=== PATIENT | male | born 1975 | race Caucasian/White ===

== ENCOUNTER 2016-09-10 12:09 | Emergency (ER) | payer OTHER ==
[2016-09-10 12:28] VITALS: BP 139/97
[2016-09-10] MEDS ORDERED: HYDROmorphone 1 MG/ML Syringe IM ONE (13:03)
[2016-09-10] MEDS ORDERED: Cyclobenzaprine 10 MG Tab PO ONE (13:03)
--- NOTE | 2016-09-10 13:08 | EDM.PDOC ---
ED HPI LOWER BACK PAIN/INJURY - General Chief Complaint: Back Pain or Injury Stated Complaint: SEVERE BACK PAIN Time Seen by Provider: 09/10/16 13:04 Source: Reports: Patient History Limitations: Reports: No limitations - History of Present Illness INITIAL COMMENTS - FREE TEXT/NARRATIVE: pt has very severe pain in the left lower back, going over the buttock and down the left leg. He states this started acutely about 36 hours ago, he has had 2 back surgeries. He is not chronicly on pain meds. he did not have a injury or a fall. Timing/Duration: Reports: Day(s):, Getting worse Location: Reports: radiating pain, other ( going down the left leg. ) Context: Reports: other ( No known injury. ) Associated Symptoms: Denies: Other ( svereback pain. ) - Related Data Allergies/ADRs: Allergies Allergy/AdvReac Type Severity Reaction Status Date / Time No Known Allergies Allergy Verified 09/10/16 12:49 Home Meds: Home Meds NK [No Known Home Meds] 05/19/14 [History] Past Medical History Musculoskeletal History: Reports: Back pain, chronic Neurological History: Reports: Other (see below) Other Neuro History: encephalitis/meningitis at 22yrs old. - Past Surgical History Neurological Surgical History: Reports: Discectomy, Other (see below) Other Neurological Surgeries/Procedures: spine surgery x 2. Social & Family History - Tobacco Use Smoking Status *Q: Never Smoker - Recreational Drug Use Recreational Drug Use: No ED ROS GENERAL - Review of Systems Review Of Systems: See Below Constitutional: Reports: no symptoms HEENT: Reports: No symptoms Respiratory: Reports: No Symptoms Cardiovascular: Reports: No symptoms Endocrine: Reports: no symptoms GI/Abdominal: Reports: No symptoms : Reports: no symptoms Musculoskeletal: Reports: other ( severe pain in his left lower back radiating down the left leg. ) Skin: Reports: no symptoms Neurological: Reports: Other ( numbness and tingling in his left foot. ) Psychiatric: Reports: Anxiety ED EXAM,LOWER BACK PAIN/INJURY - Physical Exam Exam: See Below Text/Narrative:: pt has severe left sided pain going down the left leg. Exam Limited By: No limitations General Appearance: alert, severe distress, other ( Pt had very severe pain on arrival. ) Ears: normal TMs Nose: normal inspection Throat/Mouth: Normal inspection Head: atraumatic Neck: normal inspection Respiratory/Chest: no respiratory distress Cardiovascular: regular rate, rhythm GI/Abdominal: soft, non tender Rectal (Males) Exam: Deferred Extremities: other (Pt is very tender over the buttock area. He has a very positive straight leg raising sign. He can only raise the leg about 3-4 inches off of the cart. At tht point he has very severe pain. He has weakness in the left leg. He is having tingling in the leg and foot. he has normal great toe strength. He has normal patellar reflexes. ) Neurological: alert, oriented x 3 Psychiatric: normal affect, anxious Course - Vital Signs Last Recorded V/S: Last Vital Signs Temp 36.3 C 09/10/16 12:49 Pulse 75 09/10/16 12:49 Resp 15 09/10/16 12:49 BP 139/97 H 09/10/16 12:49 Pulse Ox 98 09/10/16 12:49 - Orders/Labs/Meds Meds: Medications Discontinued Medications Generic Name Dose Route Start Last Admin Trade Name Shabana PRN Reason Stop Dose Admin Cyclobenzaprine HCl 10 mg 09/10/16 13:03 09/10/16 13:09 Flexeril PO 09/10/16 13:04 10 mg ONETIME ONE Administration Gadoteridol 20 ml 09/10/16 14:00 09/10/16 14:21 Prohance IV 09/10/16 14:01 20 ml . DIRECTED ADRIAN Administration Hydromorphone HCl 1 mg 09/10/16 13:03 09/10/16 13:10 Dilaudid IM 09/10/16 13:04 1 mg ONETIME ONE Administration Ketorolac Tromethamine 30 mg 09/10/16 13:35 09/10/16 14:26 Toradol IVPUSH 09/10/16 13:36 30 mg ONETIME ONE Administration - Re-Assessments/Exams Free Text/Narrative Re-Assessment/Exam: 09/10/16 15:03 Pt has been given 1.5 mg of dilaudid. He was given torodol 30mg iv. He had flexeril 10 mg . He is much more comfortable. Departure - Departure Time of Disposition: 15:04 Disposition: Home, Self-Care 01 Condition: fair Clinical Impression: Lumbar disc disease Forms: ED Department Discharge Care Plan Goals: rest, ice or heat to the area. Appt with Dr Giovanni Cornelius in next 3-4 days. . motrin 600mg tid, percocet 5/325 q6h prn for pain, flexeril 10mg bid to relax muscles.
[2016-09-10] MEDS ORDERED: Ketorolac 30 MG/ML SDV IVPUSH ONE (13:35)
[2016-09-10] MEDS ORDERED: Gadoteridol 279.3 MG/ML 20 ML SDV IV SCH (14:00)
--- NOTE | 2016-09-10 14:45 | MR ---
MRI lumbar spine with contrast. Indication: Left-sided back pain. Comparison: 11/25/2012. Findings: Similar labeling will be done compared to prior. 6 lumbar type vertebral bodies. Correlate with plain film before any intervention. No marrow edema. Disc heights appear similar. Conus terminates normal anatomic position. L1-2: Within normal limits. L2-3: Within normal limits. L3-4: Central disc protrusion is minimal with a central radial tear. No canal stenosis or foraminal narrowing. L4-5: Remains a central disc protrusion eccentric to the left. This creates moderate left lateral re cess narrowing as similar. No foraminal narrowing. L5-6: Right paracentral disc protrusion again appears prominent with similar appearing right lateral recess narrowing. Mild spinal canal stenosis. No foraminal narrowing. The remains similar mild left lateral recess narrowing. L6-S1: No left-sided foraminal narrowing. Similar. Disc osteophyte complex and facet hypertrophic ch rebeca contributing to mild-moderate right-sided foraminal narrowing. This is similar. Impression: 1. Foraminal at L4-5 there is a broad-based disc protrusion with left lateral recess narrowing. This is similar compared to prior. 2. No left-sided foraminal narrowing. 3. Right paracentral disc protrusion at L5-6 demonstrates advanced right lateral recess narrowing.
[2016-09-10] MEDS ORDERED: HYDROmorphone 0.5 MG/0.5 ML Syringe IVPUSH ONE (15:06)
== END 2016-09-10 15:39 | disposition home or self-care (01) ==
LOC: JP.ED 12:09
DX: M51.26 Other intervertebral disc displacement, lumbar region (principal); G89.29 Other chronic pain
CPT/HCPCS: 72158; 96372; 96374; 96375; 99284; A9270; A9576; J1170; J1885

== ENCOUNTER 2018-06-08 08:06 | Inpatient (IN) | payer OTHER ==
[~2018-06-08 08:06] MED LIST: Meropenem 500 MG SDV ONE
[2018-06-08] MEDS ORDERED: Acetaminophen 500 MG Tab PO ONE (08:15)
[2018-06-08] MEDS ORDERED: Scopolamine 1.5 MG Transdermal Patch TOP SCH (08:30)
[2018-06-08] MEDS ORDERED: Dextrose 5%-Lactated Ringers 1,000 ML IV SCH (08:30)
[2018-06-08] MEDS ORDERED: Ketamine 50 MG in Sodium Chloride 0.9% 49.5 ML IV SCH (09:00)
[2018-06-08] MEDS ORDERED: Ketamine 500 MG/5 ML MDV IV SCH (09:00)
[2018-06-08] MEDS ORDERED: Naloxone 0.4 MG/ML SDV IVPUSH PRN (09:00)
[2018-06-08] MEDS ORDERED: Neostigmine Methylsulfate 1 MG/ML 5 ML Syringe ONE (09:18)
[2018-06-08] MEDS ORDERED: Rocuronium 50 MG/5 ML Vial ONE ×2 (09:18→12:20)
[2018-06-08] MEDS ORDERED: Propofol 200 MG/20 ML SDV ONE (09:18)
[2018-06-08] MEDS ORDERED: Ondansetron 4 MG/2 ML SDV ONE (09:18)
[2018-06-08] MEDS ORDERED: Glycopyrrolate 0.2 MG/ML 5 ML MDV ONE (09:18)
[2018-06-08] MEDS ORDERED: fentaNYL 250 MCG/5 ML SDV ONE (09:18)
[2018-06-08] MEDS ORDERED: fentaNYL 100 MCG/2 ML SDV ONE (09:18)
[2018-06-08] MEDS ORDERED: Dexamethasone 4 MG/ML SDV ONE (09:18)
[2018-06-08] MEDS ORDERED: Sodium Chloride 0.9% 10 ML ONE (09:20)
[2018-06-08] MEDS ORDERED: cefOXitin 2 GM in Sodium Chloride 0.9% 50 ML IV ONE (09:30)
[2018-06-08] MEDS ORDERED: Acetaminophen 1,000 MG in Premix Bag 1 BAG IV ONE (14:30)
[2018-06-08] MEDS ORDERED: hydrOXYzine HCl 25 MG Tab PO PRN (14:59)
[2018-06-08] MEDS ORDERED: Naloxone 0.4 MG/ML SDV IV PRN (15:02)
[2018-06-08] MEDS ORDERED: diphenhydrAMINE 50 MG/ML SDV IVPUSH PRN (15:02)
[2018-06-08] MEDS: hydrOXYzine HCl 100 MG/2 ML SDV IM PRN (15:02)
[2018-06-08] MEDS ORDERED: Ondansetron 4 MG/2 ML SDV IVPUSH PRN (15:05)
[2018-06-08] MEDS: Cyclobenzaprine 10 MG Tab PO PRN (15:51)
[2018-06-08] MEDS: Dextrose 5%-Lactated Ringers 1,000 ML IV SCH ×2 (16:13→22:23)
[2018-06-08] MEDS: fentaNYL 2,500 MCG in Sodium Chloride 0.9% 200 ML EPIDUR SCH (16:30)
[2018-06-08] MEDS: cefOXitin 2 GM in Sodium Chloride 0.9% 50 ML IV SCH ×2 (16:37→23:33)
[2018-06-08] MEDS: Pantoprazole 40 MG Vial IV SCH (16:40)
[2018-06-08] MEDS: VERIFY SCOP PATCH TOP SCH (16:44)
[2018-06-08] MEDS: Acetaminophen 500 MG Tab PO SCH (21:15)
[2018-06-08] MEDS: Tamsulosin 0.4 MG Cap.ER PO SCH (21:15)
[2018-06-09] MEDS: Acetaminophen 500 MG Tab PO SCH ×4 (04:37→22:14)
[2018-06-09] MEDS: Dextrose 5%-Lactated Ringers 1,000 ML IV SCH ×3 (04:37→22:16)
[2018-06-09] MEDS: cefOXitin 2 GM in Sodium Chloride 0.9% 50 ML IV SCH (04:37)
[2018-06-09] MEDS: fentaNYL 2,500 MCG in Sodium Chloride 0.9% 200 ML EPIDUR SCH (07:08)
[2018-06-09] MEDS: Bisacodyl 5 MG Tab PO SCH ×2 (10:08→22:13)
[2018-06-09] MEDS: Ibuprofen 600 MG Tab PO SCH ×3 (10:09→20:07)
[2018-06-09] MEDS: VERIFY SCOP PATCH TOP SCH (10:10)
[2018-06-09] MEDS: traMADol 50 MG Tab PO SCH ×3 (10:54→22:20)
[2018-06-09] MEDS: Pantoprazole 40 MG Vial IV SCH (16:20)
[2018-06-09] MEDS: Tamsulosin 0.4 MG Cap.ER PO SCH (22:13)
[2018-06-10] MEDS: Ibuprofen 600 MG Tab PO SCH ×4 (02:07→20:02)
[2018-06-10] MEDS: fentaNYL 2,500 MCG in Sodium Chloride 0.9% 200 ML EPIDUR SCH (03:23)
[2018-06-10] MEDS: Acetaminophen 500 MG Tab PO SCH ×4 (03:25→21:56)
[2018-06-10] MEDS: traMADol 50 MG Tab PO SCH ×4 (05:34→21:56)
[2018-06-10] MEDS ORDERED: Meropenem 500 MG SDV ONE (06:34)
[2018-06-10] MEDS ORDERED: Bupivacaine 0.5% 50 ML MDV ONE (06:34)
[2018-06-10] MEDS ORDERED: Lidocaine 1% with EPINEPHrine 1:100,000 50 ML MDV ONE (06:35)
[2018-06-10] MEDS ORDERED: fentaNYL 100 MCG/2 ML SDV ONE (07:03)
[2018-06-10] MEDS ORDERED: Propofol 200 MG/20 ML SDV ONE (07:03)
[2018-06-10] MEDS ORDERED: Ropivacaine 49 ML, Dexamethasone 8 MG, EPINEPHrine 0.4 MG, Sodium Chloride 0.9% 28.6 ML NERVRT SCH ×4 (07:15)
[2018-06-10] MEDS ORDERED: hydrOXYzine HCl 100 MG/2 ML SDV IM ONE (08:01)
[2018-06-10] MEDS: Dextrose 5%-Lactated Ringers 1,000 ML IV SCH ×2 (08:32→17:38)
[2018-06-10] MEDS: Bisacodyl 5 MG Tab PO SCH ×2 (09:34→20:03)
[2018-06-10] MEDS: VERIFY SCOP PATCH TOP SCH (09:40)
--- NOTE | 2018-06-10 10:01 | PN ---
DATE OF SERVICE: 06/10/2018 SUBJECTIVE: Terrance is n.p.o. for delayed primary closure today. Pain, he rates 4 to 5. Oral intake 2670. Garcia output was 3130. Vital signs have been stable. REVIEW OF SYSTEMS: Remainder of review of systems negative for any pertinent positives and negatives. OBJECTIVE: GENERAL: Terarnce Hubbard is a 42-year-old male. VITAL SIGNS: TPR 98.8, 81, 16, blood pressure 151/71. HEENT: Negative. NECK: Supple. HEART: Regular rate and rhythm. LUNGS: Clear. ABDOMEN: Dressings dry and intact. Abdominal binder is on. EXTREMITIES: Without peripheral edema. ASSESSMENT: Exploratory laparotomy with rectosigmoid colon resection with coloproctostomy, repair of incarcerated umbilical hernia, and mobilization of omentum into pelvis for rectosigmoid colon diverticulitis, incarcerated umbilical hernia. PLAN: 1. Orders to be written after delayed primary closure, which will be saline lock IV. If oral intake adequate, Garcia will be discontinued at the time of delayed primary closure. 2. Good pulmonary toilet. 3. Plan discharge in bryanheather Melendez PA-C /[id number]
--- NOTE | 2018-06-10 12:19 | PN ---
DATE OF SERVICE: 06/10/2018 The patient has been afebrile with stable vital signs. No flatus or bowel movement as of yet, but he is tolerating diet. He will undergo the delayed primary closure later today, and Garcia catheter, epidural catheter, and JEREMIAH drain were all removed. We will continue bowel stimulation, resume regular diet, and we will continue pain medications with a combination of tramadol, Tylenol, and ibuprofen. Andrew Cornelius MD /[id number]
--- NOTE | 2018-06-10 12:25 | OR ---
DATE OF PROCEDURE: 06/10/2018 PREOPERATIVE DIAGNOSIS: Open abdominal incision. POSTOPERATIVE DIAGNOSIS: Open abdominal incision. PROCEDURE: Delayed primary closure of open abdominal incision. ANESTHESIA: IV sedation. INDICATIONS FOR PROCEDURE: This is a 42-year-old male, 48 hours status post sigmoid colon resection for recurrent diverticulitis. At the time of the original procedure, he was felt to be high risk for wound infection if primary closure was undertaken. Given this, a delayed primary closure was scheduled for today. Potential risks of the procedure including bleeding and infection were reviewed, and the patient wishes to proceed. DETAILS OF PROCEDURE: The patient was taken to the operating room and placed in a supine position, sitting up somewhat to minimize aspiration risk. The previous abdominal dressing was taken down and the wound inspected and found to be clean. The abdomen was then prepped and draped. Using ultrasound guidance, bilateral lower abdominal and transversus abdominis plane blocks were placed and the abdomen irrigated with meropenem-containing saline solution, and the edges were anesthetized with 1% lidocaine mixed with Marcaine. The incision was then closed with 2 layers of 3-0 and 4-0 Vicryl stitch deep, and then antwan for the skin. Dressing was applied. The patient was taken to the recovery room in satisfactory condition. Andrew Cornelius MD /[id number]
--- NOTE | 2018-06-10 13:10 | PN ---
DATE OF SERVICE: 06/09/2018 The patient has been afebrile with stable vital signs. No major problems were noted. Pain control appears to be doing well with the epidural catheter. We will begin ibuprofen and tramadol today in addition to Tylenol, and as well as bowel stimulation needed, and plan will be to proceed with a delayed primary closure of the abdominal incision and removal of the epidural catheter tomorrow morning. Andrew Cronelius MD /[id number]
[2018-06-10] MEDS: Cyclobenzaprine 10 MG Tab PO PRN (16:18)
[2018-06-10] MEDS: hydrOXYzine HCl 100 MG/2 ML SDV IM PRN (16:18)
[2018-06-10] MEDS ORDERED: Pantoprazole 40 MG Tab.CR PO SCH (16:30)
[2018-06-10] MEDS: Tamsulosin 0.4 MG Cap.ER PO SCH (20:03)
[2018-06-11] MEDS: Acetaminophen 500 MG Tab PO SCH ×2 (03:59→09:50)
[2018-06-11] MEDS: Ibuprofen 600 MG Tab PO SCH ×2 (04:06→10:23)
[2018-06-11] MEDS: traMADol 50 MG Tab PO SCH ×2 (05:30→10:23)
--- NOTE | 2018-06-11 08:25 | DISCH ---
ADMISSION DIAGNOSES: 1. Recurrent diverticulitis of the sigmoid colon. 2. History of lumbar spine disease, status post lumbar spine surgery x2. DISCHARGE DIAGNOSES: 1. Exploratory laparotomy with rectosigmoid colon resection with coloproctostomy, repair of incarcerated umbilical hernia, and mobilization of omentum into pelvis, for rectosigmoid colon diverticulitis and incarcerated umbilical hernia. Date of surgery, 06/08/2018. Surgeon, Andrew Cornelius M.D. 2. Delayed primary closure of open abdominal incision, 06/10/2018, Andrew Cornelius M.D. HISTORY: Terrance Hubbard is a 42-year-old male with recurrent diverticulitis. After preoperative evaluation and discussion of possible risks and possible complications, he wished to proceed with surgical procedure. HOSPITAL COURSE: Terrance Hubbard had his surgery on 06/08/2018. He had no operative complications. On postop day #1, his pain was controlled with an epidural catheter. He was started on ibuprofen and tramadol, Tylenol, and bowel stimulation. On postop day #2, he had his delayed primary closure. Vital signs were stable. Garcia catheter was removed and JEREMIAH drain was removed. On postop day #3, he was able to be discharged to home. Pain was managed. Activity was good. He was passing flatus. Vital signs stable. REVIEW OF SYSTEMS: Remainder of review of systems negative for any pertinent positives and negatives. OBJECTIVE: GENERAL: Terrance Hubbard is a pleasant 42-year-old male. VITAL SIGNS: Height is 5 feet 8.11 inches, weight is 216 pounds. TPR 97.4, 68, 18. Blood pressure 132/81. HEENT: Negative. NECK: Supple. HEART: Regular rate and rhythm. LUNGS: Clear. ABDOMEN: Aquacel dressing is on. Abdominal binder is on. EXTREMITIES: Without peripheral edema. DISPOSITION: Discharged to home. CONDITION: Stable and improving. FOLLOWUP APPOINTMENT: Ana Melendez PA-C, on , 06/18/2018, at 10:00 a.m. HOME MEDICATIONS: 1. Tylenol Extra Strength 1000 mg oral q.6 hours p.r.n. pain. 2. Dulcolax 10 mg oral twice daily, #30, to stop when having bowel movements. 3. Flexeril 10 mg every 6 hours p.r.n. muscle spasms, #30. 4. Ibuprofen 600 mg oral q.6 hours p.r.n. pain. 5. Protonix 40 mg p.o. daily, #30. 6. Ultram, tramadol, 50 mg every 6 hours p.r.n. pain, #30. He is to resume his home medications, which are Flexeril and ibuprofen. DISCHARGE INSTRUCTIONS: 1. Diet: His usual diet as tolerated. Drink 8 to 10 glasses of water a day. 2. Activity: Walk at least 6 times daily inside your home. No lifting greater than 10 pounds for 6 weeks. 3. Wound incision care: Remove Aquacel dressing on 06/12/2018. Wear abdominal binder for 6 weeks and then as tolerated. May shower. 4. Driving: Do not drive for 1 week and while on narcotic pain medication. 5. Notify provider if any fever, increased pain, nausea, or vomiting. 6. Special instruction: Use incentive spirometer 10 times every hour while awake for 1 week.
[2018-06-11] MEDS: Bisacodyl 5 MG Tab PO SCH (09:49)
[2018-06-11] MEDS: VERIFY SCOP PATCH TOP SCH (10:13)
[2018-06-11 10:29] VITALS: BP 126/78
--- NOTE | 2018-06-11 14:10 | OR ---
DATE OF PROCEDURE: 06/08/2018 PREOPERATIVE DIAGNOSIS: Recurrent sigmoid colon diverticulitis. POSTOPERATIVE DIAGNOSES: 1. Recurrent sigmoid colon diverticulitis. 2. Incarcerated umbilical hernia. OPERATIVE PROCEDURES: Exploratory laparotomy with; 1. Rectosigmoid colon resection with coloproctostomy (43726). 2. Repair of incarcerated umbilical hernia (92410). 3. Mobilization of omentum into pelvis to displace small bowel from pelvic wall to limit recurrent adhesion formation (64468). ANESTHESIA: General plus epidural. ASSISTANTS: Ana Melendez PA-C, and LIBBY Manriquez. INDICATION FOR PROCEDURE: This is a 42-year-old with roughly 5 episodes of sigmoid colon diverticulitis over the last 2 years, presenting with plan to proceed with an elective rectosigmoid colon resection. The patient on examination today is slightly uncomfortable indicating some smouldering inflammation in the suprapubic area, consistent with where the area of primary inflammation seen on the patient's previous CT scans. The plan is to proceed with an exploratory laparotomy, rectosigmoid colon resection with anastomosis, and other procedures as indicated. Potential risks including bleeding, infection, leaks from various GI tract closures, including the possibility of needing a temporary colostomy should the coloproctostomy leak were gone over along with the remote possibility of cardiopulmonary, septic, or hemorrhagic complications leading to , and the patient wishes to proceed. When additionally covered with the patient in the preoperative period was that we will generally resect the inflamed areas of the colon, but not intend to remove all of the diverticular colon which in this case would probably be some near-total colectomy giving the patient some risk for recurrent diverticular disease. But, in general, the study showed that risk is fairly small. DETAILS OF PROCEDURE: The patient was taken to the operating room and after general endotracheal anesthesia was induced, a Garcia catheter was inserted after an epidural catheter had been placed, and the abdomen prepped and draped. Bilateral transversus abdominis plane blocks covering the lower and mid-abdomen were then placed using ultrasound guidance. The midline incision was then made from roughly 3 fingerbreadths above the umbilicus down to the level of the pubis. The patient was noted to have an incarcerated umbilical hernia containing some preperitoneal fat as well as omentum. This was reduced, and the contents and the hernia sac excised. As one entered into the abdomen further, gentle exploration revealed a segment of the sigmoid colon in its distal extent, which was quite edematous and inflamed. There was no abscess formation seen per se. The colon proximal to this had some diverticula, but quickly became non-inflamed. As one mobilized the rectum upward, that likewise was not significantly inflamed. At this point, the junction of the mid and upper rectum was encircled and that area divided with a AURA curved black load. The colon proximally where it became non-inflamed was then also divided with the AURA black load, in this case a straight stapler. The underlying mesentery between the 2 points was then divided with identification of both the right and left ureters during the course of the dissection, and this specimen was delivered from the field. Off the field, the specimen was opened which confirmed diverticular disease, but no evidence of any neoplastic change. At this point, the anvil of a 28 mm EEA stapler was selected, and a small opening in the divided end of the sigmoid colon was made, and the anvil placed intraluminally and stapled and re-stapled with a AURA purple load. The anvil was then brought out through the most dependent portion of the divided sigmoid colon. Good blood supply was evident to this area. The patient did have some mobilization of the lateral peritoneal reflection of the sigmoid and descending colon, which allowed the sigmoid colon to come down to the divided rectum without any tension. The main body of the EEA stapler was then brought rectally up to the apex of the rectal staple line and then united with the anvil and stapler fired, thus creating the coloproctostomy. Upon removal of the stapler, double donuts of mucosa were noted within it. The pelvis was then flooded with antibiotic-containing saline solution. Colonoscope was then passed into the rectum, which was then mobilized upward to the colorectal anastomosis, which was shown to have good blood supply, be intact, and no blood or bubbles were seen. The scope was then withdrawn, removing the areas when we withdrew the scope. The coloproctostomy was then reinforced on its anterior two-thirds with 3-0 Vicryl seromuscular stitch and then with fibrin sealant. At that point, no further problems were noted. One Benjy Polanco drain was then placed through the stab wound in the right mid- abdomen and taken adjacent to the coloproctostomy and from there down into the pelvis. The omentum was then brought down into the pelvis and tacked to the pelvic sidewalls and behind the area of the bladder with 3-0 Vicryl stitch so as to displace the small bowel away from those surfaces to prevent adhesion formation in that area. At this point, the peritoneum from the linea semilunaris downward was closed with #2 Vicryl stitch, followed by closure of the anterior fascia with skin stitch. The skin and subcutaneous tissue were felt to be at high risk for wound infection if a primary closure was undertaken, and they were therefore packed open for a planned delayed primary closure in 48 hours. The patient was taken to the recovery room in satisfactory condition. There were no evident complications. Physician licensed physical therapy assistant, Ana Melendez, played an essential role in assisting in this case, helping to position the patient, retract structures as needed, as well as suturing and cutting sutures when indicated. Her presence improved the patient's safety and decreased the operative time. Andrew Cornelius MD /[id number]
== END 2018-06-11 11:28 | disposition home or self-care (01) | DRG 330 ==
LOC: JP.SDSSCHI 08:06 → JP.SDS 08:07 → EDSTATUS 09:45 → JP.MS 14:15
PROVIDERS: ADMIT Surgery; ATTEND Surgery
PROC: 0WQF0ZZ Repair Abdominal Wall, Open Approach (ICD-10-PCS; principal; 2018-06-08)
PROC: 0DTN0ZZ Resection of Sigmoid Colon, Open Approach (ICD-10-PCS; principal; 2018-06-08)
PROC: 0JQ83ZZ Repair Abdomen Subcutaneous Tissue and Fascia, Percutaneous Approach (ICD-10-PCS; 2018-06-10)
DX: K57.32 Diverticulitis of large intestine without perforation or abscess without bleeding (principal); K42.0 Umbilical hernia with obstruction, without gangrene; G89.29 Other chronic pain; M54.5 Low back pain; Z98.890 Other specified postprocedural states; Z79.899 Other long term (current) drug therapy
CPT/HCPCS: 88302; 88307; 94762; A9270-GY; C9113; J0131; J0171; J0694; J1100; J2185; J2405; J2704; J2710; J2795; J3010; J3410; J3490; J7042; J7050

== ENCOUNTER 2018-06-12 11:58 | Emergency (ER) | payer OTHER ==
[2018-06-12] MEDS ORDERED: Sodium Chloride 0.9% 10 ML Syringe FLUSH PRN (12:30)
[2018-06-12] MEDS ORDERED: Lactated Ringers 1,000 ML IV SCH (12:30)
[2018-06-12] MEDS ORDERED: HYDROmorphone 1 MG/ML Syringe IVPUSH ONE (12:32)
--- NOTE | 2018-06-12 12:34 | EDM.PDOC ---
ED HPI GENERAL MEDICAL PROBLEM - General Chief Complaint: Abdominal Pain Stated Complaint: PAIN FROM SURGERY/BOWEL Time Seen by Provider: 06/12/18 12:25 Source of Information: Reports: Patient, Old Records, RN Notes Reviewed History Limitations: Reports: No Limitations - History of Present Illness INITIAL COMMENTS - FREE TEXT/NARRATIVE: 42-year-old gentleman presents emergency department day complaint abdominal pain , he is postop day for colon resection secondary to diverticular disease. States did well on yesterday when he was discharged had passed gas without difficulty then early this morning had a bowel movement after the bowel movement severe abdominal pain followed by black watery stools. No nausea vomiting no shortness of breath no chest pain Abdomen Pain Score (Numeric/FACES): 10 - Related Data Allergies Allergy/AdvReac Type Severity Reaction Status Date / Time No Known Allergies Allergy Verified 04/18/18 20:45 Home Meds: Home Meds Cyclobenzaprine [Flexeril] 10 mg PO TID PRN 09/12/16 [History] Ibuprofen [Advil] 800 mg PO Q8H PRN 06/05/18 [History] Acetaminophen [Tylenol Extra Strength] 1,000 mg PO Q6H tablet 06/11/18 [Rx] Bisacodyl [Dulcolax] 10 mg PO BID #30 tablet 06/11/18 [Rx] Cyclobenzaprine [Flexeril] 10 mg PO Q6H PRN #30 tablet 06/11/18 [Rx] Ibuprofen [Motrin] 600 mg PO Q6H tablet 06/11/18 [Rx] Pantoprazole [ProTONIX] 40 mg PO Q24H #30 tab.cr 06/11/18 [Rx] traMADol [Ultram] 50 mg PO QID #30 tablet 06/11/18 [Rx] Past Medical History HEENT History: Reports: Impaired Vision, Other (See Below) Other HEENT History: wears glasses, right eye ulcer Gastrointestinal History: Reports: Diverticulosis Musculoskeletal History: Reports: Back Pain, Chronic Neurological History: Reports: Other (See Below) Other Neuro History: encephalitis/meningitis at 22yrs old. Endocrine/Metabolic History: Reports: Obesity/BMI 30+ - Infectious Disease History Infectious Disease History: Reports: Chicken Pox - Past Surgical History GI Surgical History: Reports: Other (See Below) Other GI Surgeries/Procedures: colon resection Male Surgical History: Reports: Other (See Below) Other Male Surgeries/Procedures: l testicle removed Neurological Surgical History: Reports: Discectomy Musculoskeletal Surgical History: Reports: Other (See Below) Other Musculoskeletal Surgeries/Procedures:: Low back surgeries 1998, 2013 Social & Family History - Tobacco Use Smoking Status *Q: Never Smoker - Caffeine Use Caffeine Use: Reports: Soda - Recreational Drug Use Recreational Drug Use: No ED ROS GENERAL - Review of Systems Review Of Systems: See Below Constitutional: Reports: No Symptoms Respiratory: Reports: No Symptoms Cardiovascular: Reports: No Symptoms GI/Abdominal: Reports: Abdominal Pain, Diarrhea, Flatus. Denies: Nausea, Vomiting : Reports: No Symptoms ED EXAM, GI/ABD - Physical Exam Exam: See Below Exam Limited By: No Limitations General Appearance: Alert, Mild Distress Respiratory/Chest: No Respiratory Distress, Lungs Clear, Normal Breath Sounds, No Accessory Muscle Use, Chest Non-Tender Cardiovascular: Normal Peripheral Pulses, Regular Rate, Rhythm, No Edema, No Gallop, No JVD, No Murmur, No Rub GI/Abdominal Exam: Soft, Tender, Other (Surgical wounds clean dry and intact) Course - Vital Signs Last Recorded V/S: Last Vital Signs Temp 99.3 F 06/12/18 12:07 Pulse 73 06/12/18 13:11 Resp 16 06/12/18 13:11 BP 148/85 H 06/12/18 13:11 Pulse Ox 98 06/12/18 13:11 - Orders/Labs/Meds Orders: Active Orders 24 hr Category Date Time Status Peripheral IV Care [RC] . DIRECTED Care 06/12/18 12:31 Active Abdomen 1V Upright [CR] Urgent Exams 06/12/18 12:30 Taken Lactated Ringers [Ringers, Lactated] 1,000 ml Med 06/12/18 12:30 Active IV ASDIRECTED Sodium Chloride 0.9% [Saline Flush] Med 06/12/18 12:30 Active 10 ml FLUSH ASDIRECTED PRN Peripheral IV Insertion Adult [OM.PC] Urgent Oth 06/12/18 12:30 Ordered Medication Orders Lactated Ringer's (Ringers, Lactated) 1,000 mls @ 999 mls/hr IV ASDIRECTED ADRIAN Last Admin: 06/12/18 12:48 Dose: 999 mls/hr Sodium Chloride (Saline Flush) 10 ml FLUSH ASDIRECTED PRN PRN Reason: Keep Vein Open Last Admin: 06/12/18 12:43 Dose: 10 ml Labs: Laboratory Tests 06/12/18 06/12/18 06/12/18 Range/Units 12:42 12:42 12:42 WBC 8.5 (4.5-11.0) K/uL RBC 4.64 (4.30-5.90) M/uL Hgb 13.6 D (12.0-15.0) g/dL Hct 40.5 (40.0-54.0) % MCV 87 (80-98) fL MCH 29 (27-31) pg MCHC 34 (32-36) % Plt Count 205 (150-400) K/uL Neut % (Auto) 74 H (36-66) % Lymph % (Auto) 14 L (24-44) % [place] % (Auto) 9 H (2-6) % Eos % (Auto) 2 (2-4) % Baso % (Auto) 0 (0-1) % Sodium 142 (140-148) mmol/L Potassium 3.3 L (3.6-5.2) mmol/L Chloride 103 (100-108) mmol/L Carbon Dioxide 31 (21-32) mmol/L Anion Gap 11.3 (5.0-14.0) mmol/L BUN 8 D (7-18) mg/dL Creatinine 0.8 (0.8-1.3) mg/dL Est Cr Clr Drug Dosing 118.75 mL/min Estimated GFR (MDRD) > 60 (>60) Glucose 91 (74-106) mg/dL Lactic Acid 1.1 (0.4-2.0) mmol/L Calcium 8.6 (8.5-10.1) mg/dL Total Bilirubin 1.1 H D (0.2-1.0) mg/dL AST 21 (15-37) U/L ALT 76 (12-78) U/L Alkaline Phosphatase 49 (46-116) U/L Total Protein 6.0 L (6.4-8.2) g/dL Albumin 3.1 L (3.4-5.0) g/dL Globulin 2.9 (2.3-3.5) g/dL Albumin/Globulin Ratio 1.1 L (1.2-2.2) Lipase 70 L (73-393) U/L Meds: Medications Generic Name Dose Route Start Last Admin Trade Name Freq PRN Reason Stop Dose Admin Lactated Ringer's 1,000 mls @ 999 mls/hr 06/12/18 12:30 06/12/18 12:48 Ringers, Lactated IV 999 mls/hr ASDIRECTED ADRIAN Administration Sodium Chloride 10 ml 06/12/18 12:30 06/12/18 12:43 Saline Flush FLUSH 10 ml ASDIRECTED PRN Administration Keep Vein Open Discontinued Medications Generic Name Dose Route Start Last Admin Trade Name Freq PRN Reason Stop Dose Admin Hydromorphone HCl 1 mg 06/12/18 12:32 06/12/18 12:41 Dilaudid IVPUSH 06/12/18 12:33 1 mg ONETIME ONE Administration - Re-Assessments/Exams Free Text/Narrative Re-Assessment/Exam: 06/12/18 13:45 Reviewed the case with Dr. Cornelius at 1345 recommending full liquid diet at this time and observation Departure - Departure Time of Disposition: 15:02 Disposition: Home, Self-Care 01 Condition: Fair Clinical Impression: Postoperative ileus - Discharge Information Referrals: Ricardo Stein MD [Primary Care Provider] - Forms: ED Department Discharge Additional Instructions: Try full liquid diet, use ibuprofen for baseline pain control use oxycodone as needed for breakthrough pain, remembers take a stool softener with your narcotics if needed, keep your follow-up appointment with general surgery next week, call return to the emergency department worsening of symptoms - My Orders Last 24 Hours: My Active Orders 06/12/18 12:30 Abdomen 1V Upright [CR] Urgent Lactated Ringers [Ringers, Lactated] 1,000 ml IV ASDIRECTED Sodium Chloride 0.9% [Saline Flush] 10 ml FLUSH ASDIRECTED PRN Peripheral IV Insertion Adult [OM.PC] Urgent 06/12/18 12:31 Peripheral IV Care [RC] . DIRECTED - Assessment/Plan Last 24 Hours: My Active Orders 06/12/18 12:30 Abdomen 1V Upright [CR] Urgent Lactated Ringers [Ringers, Lactated] 1,000 ml IV ASDIRECTED Sodium Chloride 0.9% [Saline Flush] 10 ml FLUSH ASDIRECTED PRN Peripheral IV Insertion Adult [OM.PC] Urgent 06/12/18 12:31 Peripheral IV Care [RC] . DIRECTED Plan: Assessment Acuity = acute Site and laterality = postop ileus Etiology = surgery Manifestations = abdominal pain Location of injury = Home Lab values = CBC, CMP unremarkable x-ray consistent postop ileus Plan Call discussed case with Dr. Cornelius general surgery recommended full liquid diets pain control as needed therefore prescription written for oxycodone 5/325 one tab by mouth 3 times a day total #10 when necessary he has a follow-up appointment with general surgery next week This note was dictated using zoidu voice recognition software please call with any questions on syntax or grammar.
[2018-06-12 13:12] VITALS: BP 148/85
== END 2018-06-12 15:29 | disposition home or self-care (01) ==
LOC: JP.ED 11:58
DX: K56.7 Ileus, unspecified (principal); E66.9 Obesity, unspecified
CPT/HCPCS: 36415; 74018; 80053; 83605; 83690; 85025; 99284; J1170; J7120

== ENCOUNTER 2018-06-14 17:40 | Inpatient (IN) | payer OTHER ==
[2018-06-14] MEDS ORDERED: HYDROmorphone 1 MG/ML Syringe IVPUSH ONE ×3 (17:48→20:32)
[2018-06-14] MEDS ORDERED: Ondansetron 4 MG/2 ML SDV IVPUSH ONE (18:07)
[2018-06-14] MEDS ORDERED: LORazepam 2 MG/ML SDV IVPUSH ONE (18:07)
[2018-06-14] MEDS ORDERED: Sodium Chloride 0.9% 1,000 ML IV SCH ×4 (18:15→21:00)
--- NOTE | 2018-06-14 18:16 | EDM.PDOC ---
ED HPI GENERAL MEDICAL PROBLEM - General Chief Complaint: Abdominal Pain Stated Complaint: PAIN FROM SURGERY Time Seen by Provider: 06/14/18 18:11 Source of Information: Reports: Patient History Limitations: Reports: No Limitations - History of Present Illness INITIAL COMMENTS - FREE TEXT/NARRATIVE: pt arrived distended and very uncomfortable . He has been having liquid stools at home. He had a colon resection for a infected diverticlum. He was discharged from the hosp on . He returned on Friday and he was worked up in ER and it was determined that he had a ileus. He was discharged home and advised to not eat more than full liquid diet. Onset: Other ( Problems started Friday. ) Duration: Hour(s): Location: Reports: Abdomen Associated Symptoms: Reports: Nausea/Vomiting, Weakness, Other ( severe pain. ) Abdominal Pain Score (Numeric/FACES): 3 10 Pain Score (Numeric/FACES): 5 - Related Data Allergies Allergy/AdvReac Type Severity Reaction Status Date / Time No Known Allergies Allergy Verified 04/18/18 20:45 Home Meds: Home Meds Cyclobenzaprine [Flexeril] 10 mg PO TID PRN 09/12/16 [History] Ibuprofen [Advil] 800 mg PO Q8H PRN 06/05/18 [History] Acetaminophen [Tylenol Extra Strength] 1,000 mg PO Q6H tablet 06/11/18 [Rx] Bisacodyl [Dulcolax] 10 mg PO BID #30 tablet 06/11/18 [Rx] Cyclobenzaprine [Flexeril] 10 mg PO Q6H PRN #30 tablet 06/11/18 [Rx] Ibuprofen [Motrin] 600 mg PO Q6H tablet 06/11/18 [Rx] Pantoprazole [ProTONIX] 40 mg PO Q24H #30 tab.cr 06/11/18 [Rx] traMADol [Ultram] 50 mg PO QID #30 tablet 06/11/18 [Rx] oxyCODONE HCl/Acetaminophen [Oxycodone-Acetaminophen 5-325] 06/14/18 [History] Past Medical History HEENT History: Reports: Impaired Vision, Other (See Below) Other HEENT History: wears glasses, right eye ulcer Gastrointestinal History: Reports: Diverticulosis Musculoskeletal History: Reports: Back Pain, Chronic Neurological History: Reports: Other (See Below) Other Neuro History: encephalitis/meningitis at 22yrs old. Endocrine/Metabolic History: Reports: Obesity/BMI 30+ - Infectious Disease History Infectious Disease History: Reports: Chicken Pox - Past Surgical History GI Surgical History: Reports: Other (See Below) Other GI Surgeries/Procedures: colon resection 06/08 Male Surgical History: Reports: Other (See Below) Other Male Surgeries/Procedures: l testicle removed Neurological Surgical History: Reports: Discectomy Musculoskeletal Surgical History: Reports: Other (See Below) Other Musculoskeletal Surgeries/Procedures:: Low back surgeries 1998, 2013 Social & Family History - Tobacco Use Smoking Status *Q: Never Smoker - Caffeine Use Caffeine Use: Reports: Soda ED ROS GENERAL - Review of Systems Review Of Systems: See Below Constitutional: Reports: Weakness HEENT: Reports: No Symptoms Respiratory: Reports: No Symptoms Cardiovascular: Reports: No Symptoms Endocrine: Reports: No Symptoms GI/Abdominal: Reports: Abdominal Pain, Decreased Appetite, Distension : Reports: No Symptoms Musculoskeletal: Reports: No Symptoms Skin: Reports: No Symptoms ED EXAM, GI/ABD - Physical Exam Exam: See Below Text/Narrative:: pt arrived witbh severe abdomanal pain . This has gotten much worse today. Exam Limited By: No Limitations General Appearance: Alert, Severe Distress, Other (pupils equal and reactive. ) Ears: Normal TMs Throat/Mouth: Normal Inspection Head: Atraumatic Neck: Normal Inspection Respiratory/Chest: No Respiratory Distress Cardiovascular: Regular Rate, Rhythm, Tachycardia GI/Abdominal Exam: Distended, Other (pt is having pain everywhere. ) (Male) Exam: Deferred Rectal (Males) Exam: Deferred Back Exam: Normal Inspection Extremities: Normal Inspection Neurological: Alert, Oriented, Normal Cognition, Other (extremely uncomfortable. ) Psychiatric: Normal Affect Course - Vital Signs Last Recorded V/S: Last Vital Signs Temp 36.2 C 06/18/18 03:02 Pulse 88 06/18/18 03:02 Resp 16 06/18/18 03:02 BP 138/77 06/18/18 03:02 Pulse Ox 95 06/18/18 03:02 - Orders/Labs/Meds Orders: Medication Orders Benzocaine/Menthol (Cepacol Sore Throat) 1 lozenge MUCMEM Q1H PRN PRN Reason: Sore Throat Bisacodyl (Dulcolax) 10 mg RECTAL BID [facility] Last Admin: 06/17/18 20:25 Dose: Admin: 06/17/18 09:22 Dose: Admin: 06/16/18 20:23 Dose: 10 mg Admin: 06/16/18 09:32 Dose: 10 mg Hydromorphone HCl (Dilaudid [employer] 15 Mg In Ns 30 Ml) 0 mg IV ASDIRECTED PRN; Protocol PRN Reason: Pain Last Admin: 06/16/18 03:27 Dose: 15 mg Meropenem 500 mg/ Sodium (Chloride) 50 mls @ 100 mls/hr IV Q6H [facility] Last Admin: 06/18/18 04:23 Dose: 100 mls/hr Admin: 06/17/18 21:51 Dose: 100 mls/hr Admin: 06/17/18 15:51 Dose: 100 mls/hr Admin: 06/17/18 10:12 Dose: 100 mls/hr Admin: 06/17/18 03:29 Dose: 100 mls/hr Admin: 06/16/18 21:11 Dose: 100 mls/hr Admin: 06/16/18 16:22 Dose: 100 mls/hr Admin: 06/16/18 09:32 Dose: 100 mls/hr Admin: 06/16/18 03:46 Dose: 100 mls/hr Admin: 06/15/18 21:35 Dose: 100 mls/hr Admin: 06/15/18 16:09 Dose: 100 mls/hr Admin: 06/15/18 09:58 Dose: 100 mls/hr Dextrose/Lactated Ringer's (Dextrose 5%-Lactated Ringers) 1,000 mls @ 150 mls/ hr IV ASDIRECTED [facility] Last Admin: 06/17/18 17:39 Dose: 150 mls/hr Infusion: 06/17/18 16:01 Dose: 150 mls/hr Admin: 06/17/18 09:20 Dose: 150 mls/hr Infusion: 06/17/18 08:05 Dose: 150 mls/hr Admin: 06/17/18 01:24 Dose: 150 mls/hr Infusion: 06/16/18 18:30 Dose: 150 mls/hr Admin: 06/16/18 11:49 Dose: 150 mls/hr Infusion: 06/16/18 10:31 Dose: 150 mls/hr Admin: 06/16/18 03:50 Dose: 150 mls/hr Infusion: 06/16/18 03:44 Dose: 150 mls/hr Admin: 06/15/18 21:03 Dose: 150 mls/hr Magnesium Sulfate 2 gm/ Premix 50 mls @ 25 mls/hr IV Q6H ADRIAN Stop: 06/18/18 06:29 Last Admin: 06/17/18 22:56 Dose: 25 mls/hr Infusion: 06/17/18 18:33 Dose: 25 mls/hr Admin: 06/17/18 16:33 Dose: 25 mls/hr Infusion: 06/17/18 11:35 Dose: 25 mls/hr Admin: 06/17/18 09:35 Dose: 25 mls/hr Infusion: 06/17/18 05:35 Dose: 25 mls/hr Admin: 06/17/18 03:35 Dose: 25 mls/hr Infusion: 06/16/18 23:52 Dose: 25 mls/hr Admin: 06/16/18 21:52 Dose: 25 mls/hr Infusion: 06/16/18 19:00 Dose: 25 mls/hr Admin: 06/16/18 17:00 Dose: 25 mls/hr Infusion: 06/16/18 12:25 Dose: 25 mls/hr Admin: 06/16/18 10:25 Dose: 25 mls/hr Infusion: 06/16/18 06:30 Dose: 25 mls/hr Admin: 06/16/18 04:30 Dose: 25 mls/hr Infusion: 06/16/18 01:00 Dose: 25 mls/hr Admin: 06/15/18 23:00 Dose: 25 mls/hr Infusion: 06/15/18 20:05 Dose: 25 mls/hr Admin: 06/15/18 18:05 Dose: 25 mls/hr Infusion: 06/15/18 12:42 Dose: 25 mls/hr Admin: 06/15/18 10:42 Dose: 25 mls/hr Aztreonam/Dextrose 1 gm/ (Premix) 50 mls @ 100 mls/hr IV Q8H [facility] Last Admin: 06/18/18 02:58 Dose: 100 mls/hr Admin: 06/17/18 18:52 Dose: 100 mls/hr Admin: 06/17/18 09:21 Dose: 100 mls/hr Ketorolac Tromethamine (Toradol) 30 mg IVPUSH Q6H PRN PRN Reason: PAIN Stop: 06/20/18 13:31 Metoclopramide HCl (Reglan) 10 mg IV Q6H [facility] Last Admin: 06/18/18 02:58 Dose: 10 mg Admin: 06/17/18 20:20 Dose: 10 mg Admin: 06/17/18 15:07 Dose: 10 mg Admin: 06/17/18 09:21 Dose: 10 mg Naloxone HCl (Narcan) 0.4 mg IVPUSH Q2M PRN PRN Reason: Respiratory Distress Ondansetron HCl (Zofran) 4 mg IV Q4H PRN PRN Reason: Nausea/Vomiting Pantoprazole Sodium (Protonix Iv) 40 mg IV Q12H [facility] Last Admin: 06/17/18 20:23 Dose: 40 mg Admin: 06/17/18 08:12 Dose: 40 mg Admin: 06/16/18 20:20 Dose: 40 mg Admin: 06/16/18 07:42 Dose: 40 mg Admin: 06/15/18 19:15 Dose: 40 mg Admin: 06/15/18 07:44 Dose: 40 mg Labs: Laboratory Tests 06/14/18 06/14/18 06/14/18 Range/Units 18:10 18:10 18:10 WBC 6.3 (4.5-11.0) K/uL RBC 5.79 (4.30-5.90) M/uL Hgb 17.4 H D (12.0-15.0) g/dL Hct 49.2 (40.0-54.0) % MCV 85 (80-98) fL MCH 30 (27-31) pg MCHC 35 (32-36) % Plt Count 280 (150-400) K/uL Neut % (Auto) 50 (36-66) % Lymph % (Auto) 38 (24-44) % [place] % (Auto) 9 H (2-6) % Eos % (Auto) 3 (2-4) % Baso % (Auto) 1 (0-1) % Sodium (140-148) mmol/L Potassium (3.6-5.2) mmol/L Chloride (100-108) mmol/L Carbon Dioxide (21-32) mmol/L Anion Gap (5.0-14.0) mmol/L BUN (7-18) mg/dL Creatinine (0.8-1.3) mg/dL Est Cr Clr Drug Dosing Estimated GFR (MDRD) (>60) Glucose (74-106) mg/dL Calcium (8.5-10.1) mg/dL Total Bilirubin (0.2-1.0) mg/dL AST (15-37) U/L ALT (12-78) U/L Alkaline Phosphatase (46-116) U/L C-Reactive Protein 6.33 H (0.0-0.3) mg/dL Total Protein (6.4-8.2) g/dL Albumin (3.4-5.0) g/dL Globulin (2.3-3.5) g/dL Albumin/Globulin Ratio (1.2-2.2) Urine Color Yellow Urine Appearance Clear Urine pH 5.0 (4.5-8.0) Ur Specific [place] 1.015 (1.008-1.030) Urine Protein Negative (NEGATIVE) mg/dL Urine Glucose (UA) Normal (NEGATIVE) mg/dL Urine Ketones 50 H (NEGATIVE) mg/dL Urine Occult Blood Negative (NEGATIVE) Urine Nitrite Negative (NEGAITVE) Urine Bilirubin Negative (NEGATIVE) Urine Urobilinogen Normal (NORMAL) mg/dL Ur Leukocyte Esterase Negative (NEGATIVE) Urine RBC 0-5 (0-5) Urine WBC Not seen (0-5) Ur Epithelial Cells Not seen Amorphous Sediment Not seen Urine Bacteria Few Urine Mucus Not seen 06/14/18 Range/Units 18:10 WBC (4.5-11.0) K/uL RBC (4.30-5.90) M/uL Hgb (12.0-15.0) g/dL Hct (40.0-54.0) % MCV (80-98) fL MCH (27-31) pg MCHC (32-36) % Plt Count (150-400) K/uL Neut % (Auto) (36-66) % Lymph % (Auto) (24-44) % [place] % (Auto) (2-6) % Eos % (Auto) (2-4) % Baso % (Auto) (0-1) % Sodium 139 L (140-148) mmol/L Potassium 3.6 (3.6-5.2) mmol/L Chloride 98 L (100-108) mmol/L Carbon Dioxide 29 (21-32) mmol/L Anion Gap 15.6 H (5.0-14.0) mmol/L BUN 8 (7-18) mg/dL Creatinine 1.1 (0.8-1.3) mg/dL Est Cr Clr Drug Dosing TNP Estimated GFR (MDRD) > 60 (>60) Glucose 108 H (74-106) mg/dL Calcium 9.6 (8.5-10.1) mg/dL Total Bilirubin 1.0 (0.2-1.0) mg/dL AST 25 (15-37) U/L ALT 67 (12-78) U/L Alkaline Phosphatase 66 (46-116) U/L C-Reactive Protein (0.0-0.3) mg/dL Total Protein 7.4 (6.4-8.2) g/dL Albumin 3.6 (3.4-5.0) g/dL Globulin 3.8 H (2.3-3.5) g/dL Albumin/Globulin Ratio 1.0 L (1.2-2.2) Urine Color Urine Appearance Urine pH (4.5-8.0) Ur Specific [place] (1.008-1.030) Urine Protein (NEGATIVE) mg/dL Urine Glucose (UA) (NEGATIVE) mg/dL Urine Ketones (NEGATIVE) mg/dL Urine Occult Blood (NEGATIVE) Urine Nitrite (NEGAITVE) Urine Bilirubin (NEGATIVE) Urine Urobilinogen (NORMAL) mg/dL Ur Leukocyte Esterase (NEGATIVE) Urine RBC (0-5) Urine WBC (0-5) Ur Epithelial Cells Amorphous Sediment Urine Bacteria Urine Mucus Meds: Medications Generic Name Dose Route Start Last Admin Trade Name Freq PRN Reason Stop Dose Admin Benzocaine/Menthol 1 lozenge 06/15/18 23:54 Cepacol Sore Throat MUCMEM Q1H PRN Sore Throat Bisacodyl 10 mg 06/16/18 09:00 06/17/18 20:25 Dulcolax RECTAL Not Given BID ADRIAN Hydromorphone HCl 0 mg 06/15/18 07:07 06/16/18 03:27 Dilaudid [employer] 15 Mg In Ns 30 Ml IV 15 mg ASDIRECTED PRN Administration Pain Protocol Meropenem 500 mg/ Sodium 50 mls @ 100 mls/hr 06/15/18 10:00 06/18/18 04:23 Chloride IV 100 mls/hr Q6H ADRIAN Administration Dextrose/Lactated Ringer's 1,000 mls @ 150 mls/hr 06/15/18 16:00 06/17/18 17: 39 Dextrose 5%-Lactated Ringers IV 150 mls/hr ASDIRECTED ADRIAN Administration Magnesium Sulfate 2 gm/ Premix 50 mls @ 25 mls/hr 06/15/18 10:30 06/17/18 22: 56 IV 06/18/18 06:29 25 mls/hr Q6H ADRIAN Administration Aztreonam/Dextrose 1 gm/ 50 mls @ 100 mls/hr 06/17/18 10:00 06/18/18 02:58 Premix IV 100 mls/hr Q8H ADRIAN Administration Ketorolac Tromethamine 30 mg 06/15/18 13:30 Toradol IVPUSH 06/20/18 13:31 Q6H PRN PAIN Metoclopramide HCl 10 mg 06/17/18 08:00 06/18/18 02:58 Reglan IV 10 mg Q6H ADRIAN Administration Naloxone HCl 0.4 mg 06/14/18 21:18 Narcan IVPUSH Q2M PRN Respiratory Distress Ondansetron HCl 4 mg 06/14/18 21:18 Zofran IV Q4H PRN Nausea/Vomiting Pantoprazole Sodium 40 mg 06/15/18 08:00 06/17/18 20:23 Protonix Iv IV 40 mg Q12H ADRIAN Administration Discontinued Medications Generic Name Dose Route Start Last Admin Trade Name Freq PRN Reason Stop Dose Admin Acetaminophen 650 mg 06/14/18 19:48 06/14/18 20:02 Tylenol RECTAL 06/14/18 19:49 650 mg NOW ONE Administration Acetaminophen 650 mg 06/14/18 20:50 Tylenol RECTAL Q6H PRN Fever Hydromorphone HCl 1 mg 06/14/18 17:48 06/14/18 17:53 Dilaudid IVPUSH 06/14/18 17:49 1 mg ONETIME ONE Administration Hydromorphone HCl 1 mg 06/14/18 18:09 06/14/18 18:30 Dilaudid IVPUSH 06/14/18 18:10 1 mg ONETIME ONE Administration Hydromorphone HCl 1 mg 06/14/18 20:32 06/14/18 20:39 Dilaudid IVPUSH 06/14/18 20:33 1 mg ONETIME ONE Administration Hydromorphone HCl 0.5 mg 06/14/18 20:58 Dilaudid IVPUSH Q1H PRN Pain Hydromorphone HCl 0 mg 06/14/18 21:18 06/14/18 22:00 Dilaudid [employer] 15 Mg In Ns 30 Ml IV 15 mg ASDIRECTED PRN Administration Pain Protocol Sodium Chloride 1,000 mls @ 999 mls/hr 06/14/18 18:15 06/14/18 18:31 Normal Saline IV 999 mls/hr ASDIRECTED ADRIAN Administration Sodium Chloride 1,000 mls @ 999 mls/hr 06/14/18 18:30 06/14/18 20:00 Normal Saline IV 999 mls/hr ASDIRECTED ADRIAN Administration Sodium Chloride 80 mls @ 3.5 mls/sec 06/14/18 18:50 06/14/18 19:44 Normal Saline IV 06/14/18 18:51 2.5 mls/sec ONETIME ONE Administration Sodium Chloride 1,000 mls @ 999 mls/hr 06/14/18 20:45 06/14/18 21:09 Normal Saline IV 999 mls/hr ASDIRECTED ADRIAN Administration Sodium Chloride 1,000 mls @ 300 mls/hr 06/14/18 21:00 Normal Saline IV ASDIRECTED ADRIAN Dextrose/Lactated Ringer's 1,000 mls @ 250 mls/hr 06/14/18 21:30 06/15/18 14: 35 Dextrose 5%-Lactated Ringers IV 06/15/18 15:59 250 mls/hr ASDIRECTED ADRIAN Administration Meropenem 500 mg/ Sodium 50 mls @ 100 mls/hr 06/14/18 22:00 06/15/18 03:05 Chloride IV 100 mls/hr Q6H ADRIAN Administration Acetaminophen 100 mls @ 400 mls/hr 06/15/18 07:30 06/15/18 07:32 Ofirmev IV 06/15/18 07:44 400 mls/hr NOW ONE Administration Acetaminophen 1,000 mg/ Premix 100 mls @ 400 mls/hr 06/15/18 13:30 06/15/18 19:22 IV 06/16/18 13:31 400 mls/hr Q6H PRN Administration PAIN Potassium Phosphate 20 mmole/ 256.6667 mls @ 86 mls/hr 06/16/18 10:00 17:28 Sodium Chloride IV 06/16/18 18:59 86 mls/hr Q3H ADRIAN Administration Iopamidol 150 ml 06/14/18 19:00 06/14/18 19:45 Isovue-300 (61%) IV 132 ml . DIRECTED ADRIAN Administration Ketorolac Tromethamine 60 mg 06/15/18 07:30 06/15/18 07:29 Toradol IM 06/15/18 07:31 60 mg NOW ONE Administration Lorazepam 0.5 mg 06/14/18 18:07 06/14/18 18:31 Ativan IVPUSH 06/14/18 18:08 0.5 mg ONETIME ONE Administration Ondansetron HCl 4 mg 06/14/18 18:07 06/14/18 18:30 Zofran IVPUSH 06/14/18 18:08 4 mg ONETIME ONE Administration Ondansetron HCl 4 mg 06/14/18 20:50 Zofran IV Q6H PRN Nausea/Vomiting Sodium Chloride 10 ml 06/14/18 18:50 06/14/18 19:45 Saline Flush FLUSH 06/14/18 18:51 10 ml ONETIME ONE Administration - Re-Assessments/Exams Free Text/Narrative Re-Assessment/Exam: 06/14/18 20:46 pt has a normal wbc. He is very dehydrated. He has a ng tube in. He has a high crp. He had a cat scan which looked like a ileus. He has been hydrated with 2 liters of fluid. Departure - Departure Time of Disposition: 20:47 Disposition: Admitted As Inpatient 68 Condition: Fair Clinical Impression: Ileus, Dehydration, Status post colon resection - Discharge Information
[2018-06-14] MEDS ORDERED: Sodium Chloride 0.9% 10 ML Syringe FLUSH ONE (18:50)
[2018-06-14] MEDS ORDERED: Sodium Chloride 0.9% 80 ML IV ONE (18:50)
[2018-06-14] MEDS ORDERED: Iopamidol 612 MG/ML 150 ML Bottle IV SCH (19:00)
[2018-06-14] MEDS ORDERED: Acetaminophen 650 MG Supp RECTAL ONE (19:48)
[2018-06-14] MEDS ORDERED: Ondansetron 4 MG/2 ML SDV IV PRN ×2 (20:50→21:18)
[2018-06-14] MEDS ORDERED: Acetaminophen 650 MG Supp RECTAL PRN (20:50)
[2018-06-14] MEDS ORDERED: HYDROmorphone 0.5 MG/0.5 ML Syringe IVPUSH PRN (20:58)
[2018-06-14] MEDS ORDERED: HYDROmorphone/Normal Saline 15 MG/30 ML PCA IV PRN (21:18)
[2018-06-14] MEDS ORDERED: Naloxone 0.4 MG/ML SDV IVPUSH PRN (21:18)
[2018-06-14] MEDS: Meropenem 500 MG in Sodium Chloride 0.9% 50 ML IV SCH (22:01)
[2018-06-14] MEDS: Dextrose 5%-Lactated Ringers 1,000 ML IV SCH (22:49)
[2018-06-15] MEDS: Dextrose 5%-Lactated Ringers 1,000 ML IV SCH ×4 (02:51→21:03)
[2018-06-15] MEDS: Meropenem 500 MG in Sodium Chloride 0.9% 50 ML IV SCH ×4 (03:05→21:35)
[2018-06-15] MEDS ORDERED: HYDROmorphone/Normal Saline 15 MG/30 ML PCA IV PRN (07:07)
[2018-06-15] MEDS ORDERED: Ketorolac 60 MG/2 ML SDV IM ONE (07:30)
[2018-06-15] MEDS: Pantoprazole 40 MG Vial IV SCH ×2 (07:44→19:15)
[2018-06-15] MEDS: Magnesium Sulfate/Water 2 GM in Premix Bag 1 BAG IV SCH ×3 (10:42→23:00)
--- NOTE | 2018-06-15 13:07 | PN ---
DATE OF SERVICE: 06/15/2018 The patient was readmitted last night with an apparent ileus. He was seen on Friday after moving his bowels early in the morning on Friday morning and then having increased pain. At that point, the pain control appeared to be more adequate, and he was tolerating a liquid diet and was discharged back home. Over the weekend, he has had problems with ongoing nausea. He did move his bowels some yesterday, but more of a liquid-type bowel movement. Otherwise, he continues to have quite a bit of pain presently. T-max overnight has been 99, heart rates in the 110 range. He appears to be poorly controlled in terms of pain. Otherwise, pulse oximetry shows O2 saturation of 92% on 2 L. he does have some basilar atelectasis and small bilateral pleural effusions on the CT scan, and the abdominal x-ray this morning shows air predominantly within the colon. NG tube is not quite in far enough as its tip appears to be near the esophagogastric junction, so we will advance that somewhat further. Otherwise, his abdominal examination shows some distention, but otherwise the incision appears to be clean. Laboratory shows a white count of 10,000. Hemoglobin is down at 13.6, it was 17.4 on admission which could be likely related to dehydration. Creatinine is stable at 1.0. Likewise, electrolytes are unremarkable. The magnesium is a little low at 1.4. We will begin supplementing that. Overall, appears to be a combination of postoperative ileus and inadequate pain control. At this point, I think we will give him a dose of Toradol and IV Tylenol presently and increase WEB PRESS OPERATOR ASSISTANT dose somewhat. I will leave the NG tube in place, advancing it around 5 inches or so, and once we get some pain control, we will try and maximize his activity and such. The magnesium will be supplemented beginning this morning as well. Andrew Cornelius MD Job #: [id number]
[2018-06-15] MEDS ORDERED: Ketorolac 30 MG/ML SDV IVPUSH PRN (13:30)
[2018-06-15] MEDS ORDERED: Acetaminophen 1,000 MG in Premix Bag 1 BAG IV PRN (13:30)
[2018-06-15] MEDS ORDERED: Benzocaine/Cetylpyridinium/Menthol Lozenge MUCMEM PRN (23:54)
[2018-06-16] MEDS: Meropenem 500 MG in Sodium Chloride 0.9% 50 ML IV SCH ×4 (03:46→21:11)
[2018-06-16] MEDS: Dextrose 5%-Lactated Ringers 1,000 ML IV SCH ×2 (03:50→11:49)
[2018-06-16] MEDS: Magnesium Sulfate/Water 2 GM in Premix Bag 1 BAG IV SCH ×4 (04:30→21:52)
[2018-06-16] MEDS: Pantoprazole 40 MG Vial IV SCH ×2 (07:42→20:20)
[2018-06-16] MEDS: Bisacodyl 10 MG Supp RECTAL SCH ×2 (09:32→20:23)
[2018-06-16] MEDS: Potassium Phosphates 20 MMOLE in Sodium Chloride 0.9% 250 ML IV SCH ×3 (09:50→17:28)
--- NOTE | 2018-06-16 10:53 | PN ---
DATE OF SERVICE: 06/16/2018 SUBJECTIVE: Terrance remains to pass no flatus. NG has had out 600 mL. Temperature max 99.7. His pain is controlled with the use of a MASH TUB COOKER. He reports extreme dry mouth. REVIEW OF SYSTEMS: Remainder of review of systems negative for any pertinent positives and negatives. OBJECTIVE: GENERAL: Terrance Hubbard is a pleasant 42-year-old male. He is alert and orientated. NG in place. VITAL SIGNS: TPR is 100.1, 99, 16, blood pressure 134/81. HEENT: Negative. NECK: Supple. HEART: Regular rate and rhythm. LUNGS: Clear. ABDOMEN: Incision looks good. Remains to be slightly distended. Abdominal binder is on. EXTREMITIES: Without peripheral edema. ASSESSMENT: Postoperative ileus. PLAN: 1. Rx K-Phos 60 millimoles IV today. 2. Dulcolax suppositories b.i.d. until BM. 3. May have hard candy to suck on. 4. Check CBC, CMP, and phos in a.m. 5. We will evaluate p.r.n. or in a.m. Ana Melendez PA-C /[id number]
--- NOTE | 2018-06-16 11:37 | CR ---
Abdomen 2V AP Flat Upright CLINICAL HISTORY: Ileus FINDINGS: NG tube is advanced slightly within the gastric remanent. There is some gas and feces are the colon. Small bowel pattern is nonacute. No free air is seen. IMPRESSION: NG tube remains in place Nonacute intestinal gas pattern
[2018-06-17] MEDS: Dextrose 5%-Lactated Ringers 1,000 ML IV SCH ×3 (01:24→17:39)
[2018-06-17] MEDS: Meropenem 500 MG in Sodium Chloride 0.9% 50 ML IV SCH ×4 (03:29→21:51)
[2018-06-17] MEDS: Magnesium Sulfate/Water 2 GM in Premix Bag 1 BAG IV SCH ×4 (03:35→22:56)
[2018-06-17] MEDS: Pantoprazole 40 MG Vial IV SCH ×2 (08:12→20:23)
[2018-06-17] MEDS: Metoclopramide 10 MG/2 ML SDV IV SCH ×3 (09:21→20:20)
[2018-06-17] MEDS: Aztreonam/Dextrose-Water 1 GM in Premix Bag 1 BAG IV SCH ×2 (09:21→18:52)
[2018-06-17] MEDS: Bisacodyl 10 MG Supp RECTAL SCH ×2 (09:22→20:25)
--- NOTE | 2018-06-17 09:52 | PN ---
DATE OF SERVICE: 06/17/2018 SUBJECTIVE: Terrance states he is passing of flatus. NG put out 600 mL. He has been up, ambulating. REVIEW OF SYSTEMS: Remainder of review of systems negative for any pertinent positives and negatives. OBJECTIVE: GENERAL: Terrance Hubbard is a 42-year-old male. VITAL SIGNS: TPR is 98.7, 58, 18, blood pressure 138/87. HEENT: Negative. NECK: Supple. HEART: Regular rate and rhythm. LUNGS: Clear. ABDOMEN: Negative. No change. EXTREMITIES: Without peripheral edema. ASSESSMENT: Postoperative ileus. PLAN: 1. Discontinue NG. 2. Azactam 1 g q.8 hours IV. 3. Reglan 10 mg IV every 8 hours. 4. Abdominal flat and upright x-ray in the a.m. 5. Good pulmonary toilet. 6. We will evaluate p.r.n. or in the a.m. Ana Melendez PA-C /[id number]
[2018-06-18] MEDS: Aztreonam/Dextrose-Water 1 GM in Premix Bag 1 BAG IV SCH ×3 (02:58→18:31)
[2018-06-18] MEDS: Metoclopramide 10 MG/2 ML SDV IV SCH ×4 (02:58→19:24)
[2018-06-18] MEDS: Meropenem 500 MG in Sodium Chloride 0.9% 50 ML IV SCH ×4 (04:23→21:43)
[2018-06-18] MEDS: Magnesium Sulfate/Water 2 GM in Premix Bag 1 BAG IV SCH (05:20)
[2018-06-18] MEDS: Pantoprazole 40 MG Vial IV SCH ×2 (07:38→19:27)
[2018-06-18] MEDS: Dextrose 5%-Lactated Ringers 1,000 ML IV SCH ×2 (07:51→21:42)
[2018-06-18] MEDS: Acetaminophen/oxyCODONE 325-5 MG Tab PO PRN ×3 (07:56→21:41)
--- NOTE | 2018-06-18 09:37 | CR ---
Abdomen 2V AP Flat Upright CLINICAL HISTORY: Ileus FINDINGS: NG tube has been removed There are scattered air-filled loops of small bowel throughout the abdomen in a nonacute pattern. There is gas and feces throughout the colon. No significant free intraperitoneal air is identified. There is airspace disease in both lung bases as well as small effusions. IMPRESSION: Nonacute intestinal gas pattern NG tube is been removed Bilateral lower lobe segmental atelectasis and/or infiltrate with small bibasal effusions
[2018-06-18] MEDS: Bisacodyl 10 MG Supp RECTAL SCH ×2 (10:34→21:38)
--- NOTE | 2018-06-18 10:45 | PN ---
DATE OF SERVICE: 06/18/2018 SUBJECTIVE: Terrance had a large bowel movement yesterday morning. He states he has felt much better. Vital signs have been stable. Oral intake 120 consisting of ice chips. The pain is much better after bowel movement. REVIEW OF SYSTEMS: Remainder of review of systems negative for any pertinent positives and negatives. OBJECTIVE: GENERAL: Terrance Hubbard is a 42-year-old male, alert and orientated, looks like he feels much better today. VITAL SIGNS: TPR 97.3, 83, 16, and blood pressure is 131/83. HEENT: Negative. NECK: Supple. HEART: Regular rate and rhythm. LUNGS: Clear. ABDOMEN: Antwan intact. It is softer and less tender. EXTREMITIES: Without peripheral edema. ASSESSMENT: Postoperative ileus. PLAN: 1. GI low-fiber soft diet. 2. Discontinue STATION BAGGAGE AGENT and continuous pulse ox. 3. Percocet 5/325 mg one to two tablets every 4 hours p.r.n. pain. 4. May remove antwan and place Steri-Strips if the incision looks like it is not secure. When removing antwan to remove every other staple. 5. Decrease IV rate to 80 mL per hour. 6. Good pulmonary toilet. 7. We will evaluate p.r.n. or in the a.m. Ana Melendez PA-C /[id number]
[2018-06-19] MEDS: Metoclopramide 10 MG/2 ML SDV IV SCH ×2 (01:30→07:41)
[2018-06-19] MEDS: Aztreonam/Dextrose-Water 1 GM in Premix Bag 1 BAG IV SCH ×2 (01:35→10:27)
[2018-06-19] MEDS: Meropenem 500 MG in Sodium Chloride 0.9% 50 ML IV SCH ×2 (03:55→10:27)
[2018-06-19] MEDS: Acetaminophen/oxyCODONE 325-5 MG Tab PO PRN ×2 (05:25→11:01)
[2018-06-19] MEDS: Pantoprazole 40 MG Vial IV SCH (07:41)
[2018-06-19 07:47] VITALS: BP 140/87
--- NOTE | 2018-06-19 08:41 | DISCH ---
ADMISSION DIAGNOSES: 1. Postoperative ileus following colon resection. 2. Diverticulitis. 3. Lumbar disk disease. 4. Spinal stenosis of lumbar region. DISCHARGE DIAGNOSES: Resolution of postoperative ileus. HISTORY: Terrance Hubbard is a 42-year-old male, who had a colon resection for infected diverticulitis and he had an exploratory laparotomy with rectosigmoid colon resection with coloproctostomy, repair of incarcerated umbilical hernia, mobilization of omentum into pelvis, for rectosigmoid colon diverticulitis, and incarcerated umbilical hernia on 06/08/2018 with delayed primary closure on 06/10/2018. He presented to the emergency room and was admitted on 06/14/2018 with postop ileus. HOSPITAL STAY: Terrance was treated for a postop ileus. He had daily flat and upright abdominal x-rays. NG was placed. Labs were monitored and his pain was managed on 06/16/2018. His K-Phos was replaced. He was started on Dulcolax suppositories b.i.d. On 06/17/2018, NG was discontinued. He was started on Azactam and Reglan. On 06/17/2018, he did have a bowel movements. On 06/18/2018, he was started on a GI low-fiber diet. BOAT OUTBOARD ENGINE MECHANIC was discontinued. He was started on oral pain medication. Ritchie were removed. Steri-Strips applied and he was able to be discharged to home on 06/19/2018. REVIEW OF SYSTEMS: HEENT: Negative. NECK: Negative. HEART: No chest pain, shortness of breath. LUNGS: No cough. ABDOMEN: Prior to discharge, he had 4 bowel movements of normal consistency. Oral intake was adequate. : Negative. EXTREMITIES: Negative. SKIN: Without rash. NEURO: Intact. PSYCHIATRIC: Mood and affect appropriate. PHYSICAL EXAMINATION: GENERAL: Terrance Hubbard is a 42-year-old male. Height is 5 feet 8.9 inches, weight is 214 pounds. VITAL SIGNS: TPR 97.1, 75, 16, blood pressure 140/87. HEENT: Negative. NECK: Supple. HEART: Regular rate and rhythm. LUNGS: Clear. ABDOMEN: Incision looks good. Steri-Strips are on. Abdominal binder is in place. EXTREMITIES: Without peripheral edema. DISPOSITION: Discharged to home. CONDITION: Stable and improving. FOLLOWUP APPOINTMENT: Ana Melendez PA-C, on 07/02/2018 at 10:15 a.m. MEDICATIONS: New Prescriptions: 1. Percocet 5/325 mg 1 to 2 every 4 hours p.r.n. pain, #30. He is to resume his home medications. 1. Flexeril 10 mg three times a day p.r.n. 2. Dulcolax 10 mg oral twice daily. 3. Advil 800 mg every 8 hours p.r.n. 4. Protonix 40 mg every 24 hours and stop taking the tramadol while on the Percocet. DIET: After discharge, drink 8 to 10 glasses of water daily. GI soft, low-residue diets. ACTIVITY: As tolerated. No lifting greater than 10 pounds for 1 more month. Driving, do not drive on pain medication. Shower/bathing, may shower. DISCHARGE INSTRUCTIONS: Notify provider if any fever, increased pain, nausea, vomiting. Special instruction; wear abdominal binder for 4 weeks and then as tolerated.
[2018-06-19] MEDS: Bisacodyl 10 MG Supp RECTAL SCH (10:26)
--- NOTE | 2018-06-19 10:45 | CR ---
Abdomen 2V AP Flat Upright CLINICAL HISTORY: Ileus FINDINGS: There are a few scattered air-filled loops of nondilated small bowel. These of diminished since prior study. There is gas and feces throughout the colon. IMPRESSION: Nonacute intestinal gas pattern with a decrease in small bowel gas when compared to prior study
== END 2018-06-19 11:35 | disposition home or self-care (01) | DRG 390 ==
LOC: JP.ED 17:40 → JP.ICU 20:50 → JP.MS 06-15 16:25
PROVIDERS: ADMIT Surgery; ATTEND Surgery
DX: K56.7 Ileus, unspecified (principal); Z98.890 Other specified postprocedural states; E86.0 Dehydration; E83.42 Hypomagnesemia; M48.061 Spinal stenosis, lumbar region without neurogenic claudication; K57.90 Diverticulosis of intestine, part unspecified, without perforation or abscess without bleeding; E66.9 Obesity, unspecified; Z68.31 Body mass index [BMI] 31.0-31.9, adult; H54.7 Unspecified visual loss; Z90.49 Acquired absence of other specified parts of digestive tract; G89.29 Other chronic pain
CPT/HCPCS: 36415; 74019; 74019-26; 74177; 80053; 81001; 83735; 84100; 85025; 85027; 86140; 87040; 94762; 96361; 96374; 96375; 96376; 99285-25; A9270-GY; C9113; J0131; J1170; J1885; J2060; J2185; J2405; J2765; J3475; J3490; J7030; J7042; J7050

== ENCOUNTER 2022-08-29 22:05 | Emergency (ER) | payer BC, OTHER ==
[2022-08-29] MEDS ORDERED: Sodium Chloride 0.9% 10 ML Syringe FLUSH PRN (22:51)
[2022-08-29] MEDS ORDERED: Ketorolac 30 MG/ML SDV IVPUSH ONE (22:51)
[2022-08-29] MEDS ORDERED: Iopamidol 612 MG/ML 100 ML Bottle IV STA (23:06)
[2022-08-29] MEDS ORDERED: Sodium Chloride 0.9% 50 ML IV STA (23:06)
[2022-08-29] MEDS ORDERED: HYDROmorphone 0.5 MG/0.5 ML Syringe IVPUSH ONE (23:53)
[2022-08-29 23:59] VITALS: BP 125/85; PULSE 68
[2022-08-30] MEDS ORDERED: Ciprofloxacin 500 MG Tab PO ONE (00:36)
[2022-08-30] MEDS ORDERED: metroNIDAZOLE 250 MG Tab PO ONE (00:36)
== END 2022-08-30 01:00 | disposition home or self-care (01) ==
LOC: JP.ED 22:05
DX: K57.32 Diverticulitis of large intestine without perforation or abscess without bleeding (principal); E66.9 Obesity, unspecified; Z68.32 Body mass index [BMI] 32.0-32.9, adult
CPT/HCPCS: 36415; 74177; 80048; 81001; 83605; 85025; 86140; 96374; 96375; 99284; A9270; J1170; J1885; J3490; Q9967

== ENCOUNTER 2023-01-05 09:29 | Emergency (ER) | payer BC, OTHER ==
[2023-01-05] MEDS ORDERED: Sodium Chloride 0.9% 10 ML Syringe FLUSH PRN (10:25)
[2023-01-05] MEDS ORDERED: Sodium Chloride 0.9% 1,000 ML IV STA (10:25)
[2023-01-05] MEDS ORDERED: Ondansetron 4 MG/2 ML SDV IVPUSH ONE (10:27)
[2023-01-05] MEDS ORDERED: fentaNYL 100 MCG/2 ML SDV IVPUSH ONE (10:27)
[2023-01-05] MEDS ORDERED: Sodium Chloride 0.9% 50 ML IV SCH (10:30)
[2023-01-05] MEDS ORDERED: Iopamidol 612 MG/ML 100 ML Bottle IV PRN (10:30)
[2023-01-05] MEDS ORDERED: Sodium Chloride 0.9% 10 ML Syringe FLUSH ONE (10:30)
[2023-01-05 10:40] LABS: BASOPHILS PERCENT AUTO 0.2 % (0.1-1.3); EOSINOPHILS ABSOLUTE AUTO 0.12 K/uL (0.00-0.40); EOSINOPHILS PERCENT AUTO 1.4 % (0.0-5.4); HEMATOCRIT 42.6 % (38.4-49.7); HEMOGLOBIN 14.6 g/dL (12.9-16.9); IMMATURE GRAN ABSOLUTE AUTO 0.03 K/uL (0.00-0.23); IMMATURE GRAN PERCENT AUTO 0.4 % (0.0-0.7); LYMPHOCYTES ABSOLUTE AUTO 1.07 K/uL (0.8-3.3); LYMPHOCYTES PERCENT AUTO 12.9 % (11.4-47.7); MEAN CORPUSCULAR HEMOGLOBIN 29.6 pg (31.6-35.5); MEAN CORPUSCULAR HGB CONC 34.3 g/dL (31.6-35.5); MEAN CORPUSCULAR VOLUME 86.4 fL (81.4-99.0); MONOCYTES ABSOLUTE AUTO 0.57 K/uL (0.20-0.90); MONOCYTES PERCENT AUTO 6.9 % (3.3-12.6); NEUTROPHILS ABSOLUTE AUTO 6.47 K/uL (1.0-7.6); NEUTROPHILS PERCENT AUTO 78.2 % (40.0-78.1); PLATELET COUNT,PLT 150 K/uL (130-375); RED BLOOD CELL COUNT 4.93 M/uL (4.14-5.76); WHITE BLOOD CELL COUNT,WBC 8.3 K/uL (3.2-11.0)
[2023-01-05 10:41] LABS: BASOPHILS ABSOLUTE AUTO 0.02 K/uL (0.00-0.10)
[2023-01-05 11:01] VITALS: BP 135/88; PULSE 75
[2023-01-05 11:03] LABS: A/G RATIO 1.5 (1.2-2.2); ALANINE AMINOTRANSFERASE,ALT 43 U/L (12-78); ALBUMIN 3.7 g/dL (3.4-5.0); ALKALINE PHOSPHATASE 54 U/L (46-116); ASPARTATE AMNIOTRANSFERASE,AST 24 U/L (15-37); BILIRUBIN TOTAL 1.5 mg/dL (0.2-1.0); BLOOD UREA NITROGEN,BUN 16 mg/dL (7-18); CALCIUM 8.8 mg/dL (8.5-10.1); CARBON DIOXIDE,CO2 29 mmol/L (21-32); CHLORIDE,CL 103 mmol/L (100-108); CREATININE 0.9 mg/dL (0.8-1.3); EST CRCL DRUG DOSING (CG) 96.91 mL/min; ESTIMATED GFR 107 mL/min (>60); GLUCOSE RANDOM 93 mg/dL (74-106); PROTEIN TOTAL,TP 6.2 g/dL (6.4-8.2); SODIUM,NA 138 mmol/L (140-148)
[2023-01-05 11:31] LABS: APPEARANCE,URINE CLEAR (CLEAR); BILIRUBIN,URINE NEGATIVE (NEGATIVE); COLOR,URINE YELLOW (YELLOW); GLUCOSE,URINE NEGATIVE (NEGATIVE); KETONES,URINE NEGATIVE (NEGATIVE); LEUKOCYTE ESTERASE,URINE NEGATIVE (NEGATIVE); NITRITE,URINE NEGATIVE (NEGATIVE); OCCULT BLOOD,URINE NEGATIVE (NEGATIVE); PH,URINE 7.5 (5.0-8.0); PROTEIN,URINE NEGATIVE (NEGATIVE); UROBILINOGEN,URINE 0.2 EU/dL (0.2-1.0)
[2023-01-05 11:38] LABS: AMORPHOUS SEDIMENT,URINE NOT SEEN; BACTERIA,URINE NOT SEEN; EPITHELIAL CELLS,URINE NOT SEEN; MUCUS,URINE NOT SEEN; RBC,URINE 0-5 (0-5); WBC,URINE NOT SEEN (0-5)
== END 2023-01-05 12:08 | disposition home or self-care (01) ==
LOC: JP.ED 09:29
DX: K57.92 Diverticulitis of intestine, part unspecified, without perforation or abscess without bleeding (principal); E66.9 Obesity, unspecified; Z68.31 Body mass index [BMI] 31.0-31.9, adult
CPT/HCPCS: 36415; 74177; 80053; 81001; 83605; 83690; 85025; 96374; 96375; 99284; J2405; J3010; J3490; J7030; Q9967

== ENCOUNTER 2023-10-12 13:05 | Emergency (ER) | payer OTHER ==
[2023-10-12 13:38] LABS: BASOPHILS ABSOLUTE AUTO 0.05 K/uL (0.00-0.10); BASOPHILS PERCENT AUTO 0.9 % (0.1-1.3); EOSINOPHILS ABSOLUTE AUTO 0.31 K/uL (0.00-0.40); EOSINOPHILS PERCENT AUTO 5.7 % (0.0-5.4); HEMATOCRIT 42.6 % (38.4-49.7); HEMOGLOBIN 15.3 g/dL (12.9-16.9); IMMATURE GRAN PERCENT AUTO 0.4 % (0.0-0.7); LYMPHOCYTES ABSOLUTE AUTO 1.66 K/uL (0.8-3.3); LYMPHOCYTES PERCENT AUTO 30.5 % (11.4-47.7); MEAN CORPUSCULAR HEMOGLOBIN 30.3 pg (31.6-35.5); MEAN CORPUSCULAR HGB CONC 35.9 g/dL (31.6-35.5); MEAN CORPUSCULAR VOLUME 84.4 fL (81.4-99.0); MONOCYTES ABSOLUTE AUTO 0.39 K/uL (0.20-0.90); MONOCYTES PERCENT AUTO 7.2 % (3.3-12.6); NEUTROPHILS ABSOLUTE AUTO 3.02 K/uL (1.0-7.6); NEUTROPHILS PERCENT AUTO 55.3 % (40.0-78.1); PLATELET COUNT,PLT 178 K/uL (130-375); RED BLOOD CELL COUNT 5.05 M/uL (4.14-5.76); WHITE BLOOD CELL COUNT,WBC 5.5 K/uL (3.2-11.0)
[2023-10-12 13:40] LABS: IMMATURE GRAN ABSOLUTE AUTO 0.02 K/uL (0.00-0.23)
[2023-10-12 14:01] LABS: ANION GAP 9.7 mmol/L (5.0-14.0); CALCIUM 9.4 mg/dL (8.5-10.1); EST CRCL DRUG DOSING (CG) 89.3 mL/min; POTASSIUM,K 4.1 mmol/L (3.6-5.2); TROPONIN I HIGH SENSITIVITY 5.7 pg/mL (<=60.3)
[2023-10-12 16:14] VITALS: BP 133/73; PULSE 63
== END 2023-10-12 16:14 | disposition home or self-care (01) ==
LOC: JP.ED 13:05
DX: R07.89 Other chest pain (principal); Z86.19 Personal history of other infectious and parasitic diseases
CPT/HCPCS: 36415; 71045; 71045-26; 80048; 84484; 85025; 85379; 93005; 99285